=== PATIENT | male | born 2005 | race Caucasian/White ===

== ENCOUNTER 2024-11-10 20:12 | Emergency (ER) | payer OTHER ==
[~2024-11-10] VITALS: Ht 170.2 cm; Wt 97.0 kg
[2024-11-10 22:05] VITALS: BP 130/82; TEMP 97.2; O2SAT 98
== END 2024-11-10 22:08 | disposition home or self-care (01) ==
LOC: M ED 20:12
DX: S30.0XXA Contusion of lower back and pelvis, initial encounter (principal); S83.92XA Sprain of unspecified site of left knee, initial encounter; W10.8XXA Fall (on) (from) other stairs and steps, initial encounter; Y92.009 Unspecified place in unspecified non-institutional (private) residence as the place of occurrence of the external cause; Y93.9 Activity, unspecified; Y99.9 Unspecified external cause status

== ENCOUNTER 2025-07-22 21:54 | Inpatient (IN) | payer OTHER ==
[~2025-07-22] VITALS: Ht 170.2 cm; Wt 91.9 kg
[2025-07-22 22:58] LABS: PLATELET COUNT, AUTOMATED 383 10^3/uL (150-450)
[2025-07-22 23:13] LABS: CANNABINOIDS URINE NEGATIVE (NEGATIVE); METHADONE URINE NEGATIVE (NEGATIVE); OPIATES URINE NEGATIVE (NEGATIVE); PHENCYCLIDINE URINE NEGATIVE (NEGATIVE)
[2025-07-22 23:14] LABS: AMPHETAMINES LEVEL URINE NEGATIVE (NEGATIVE); BARBITURATES URINE NEGATIVE (NEGATIVE); BENZODIAZEPINES URINE NEGATIVE (NEGATIVE); COCAINE METABOLITE URINE NEGATIVE (NEGATIVE)
[2025-07-22 23:16] LABS: ETHYL ALCOHOL (ETHANOL) < 0.003 % (0.000-0.010)
[2025-07-22 23:17] LABS: SALICYLATE LEVEL < 3.0 MG/DL (<30)
[2025-07-22 23:18] LABS: ALT/SGPT 52 U/L (7.0-40); AST/SGOT 22 U/L (<34); CALCIUM LEVEL 9.4 MG/DL (8.5-10.1); CARBON DIOXIDE LEVEL 29 MMOL/L (20-31); CHLORIDE LEVEL 103 MMOL/L (98-107); CREATININE FOR GFR 0.90 MG/DL (0.70-1.30); GLOMERULAR FILTRATION RATE > 90.0 (>60); POTASSIUM SERUM 3.8 MMOL/L (3.5-5.1); SODIUM LEVEL 143 MMOL/L (136-145)
[2025-07-23] MEDS ORDERED: IBUPROFEN 400 MG TAB PO PRN (05:00)
[2025-07-23] MEDS ORDERED: MOM 30 ML SUSPENSION UDC PO PRN (05:00)
[2025-07-23] MEDS ORDERED: ACETAMINOPHEN 325 MG TAB PO PRN (05:00)
[2025-07-23] MEDS ORDERED: MAALOX 30 ML SUSP *UDC PO PRN (05:00)
[2025-07-23] MEDS ORDERED: traZODone 50 MG TAB PO PRN (05:00)
[2025-07-23 06:37] VITALS: BP 133/88; TEMP 97.4; O2SAT 100
[2025-07-23] MEDS ORDERED: MED REC IN PROGRESS XX SCH (10:40)
[2025-07-23] MEDS ORDERED: ZOLO100T PO (10:47)
[2025-07-23] MEDS ORDERED: HOME MED LIST COMPLETE! XX SCH (10:50)
[2025-07-23] MEDS: SERTRALINE 100 MG TAB PO SCH (15:26)
[2025-07-23 15:30] VITALS: BP 134/89; TEMP 97.8; O2SAT 99
[2025-07-24 06:23] VITALS: BP 114/63; TEMP 97.4; O2SAT 97
[2025-07-24 14:36] VITALS: BP 119/76; TEMP 98.6; O2SAT 98
[2025-07-25 06:26] VITALS: BP 143/88; TEMP 96.9; O2SAT 97
[2025-07-25 16:02] VITALS: BP 128/69; TEMP 98; O2SAT 100
[2025-07-26 06:21] VITALS: BP 141/72; TEMP 98.6; O2SAT 97
[2025-07-26] MEDS ORDERED: ZOLO100T PO (08:14)
== END 2025-07-26 11:37 | disposition home or self-care (01) | DRG 885 ==
LOC: M ED 21:54 → M ED INP 07-23 04:59 → M PSY 07-23 06:08
PROVIDERS: ADMIT Psychiatry & Neurology Neurology; ATTEND Psychiatry & Neurology Neurology
DX: F33.1 Major depressive disorder, recurrent, moderate (principal); R45.851 Suicidal ideations; F41.9 Anxiety disorder, unspecified; M19.90 Unspecified osteoarthritis, unspecified site; G47.33 Obstructive sleep apnea (adult) (pediatric); G43.909 Migraine, unspecified, not intractable, without status migrainosus; F17.200 Nicotine dependence, unspecified, uncomplicated; Z79.899 Other long term (current) drug therapy; Z62.810 Personal history of physical and sexual abuse in childhood; Z81.8 Family history of other mental and behavioral disorders; Z91.51 Personal history of suicidal behavior; Z63.8 Other specified problems related to primary support group; Z63.5 Disruption of family by separation and divorce